=== PATIENT | male | born 1965 | race Caucasian/White ===

== ENCOUNTER 2018-11-27 11:57 | Day surgery (SDC) | payer OTHER ==
[~2018-11-27] VITALS: Ht 160 cm; Wt 67.8 kg
[2018-11-27 13:18] VITALS: Ht 160 cm; Wt 67.8 kg
[2018-11-27 13:41] VITALS: BP 134/77; PULSE 63; RESP 16
[2018-11-27] MEDS ORDERED: NO HOME MEDS (13:42)
--- NOTE | 2018-11-27 14:18 | PREAC ---
Date/Time of Note Date/Time of Note DATE: 11/27/18 TIME: 14:16 Anesthesia Eval and Record Evaluation Time Pre-Procedure Interview DATE: 11/27/18 TIME: 14:16 Age 53 Sex male NPO: 8 hrs Preoperative diagnosis SCREENING COLON CANCER Planned procedure COLONOSCOPY POSSIBLE BIOPSY Past Medical History Past Medical History: None Surgery & Anesthesia Issues No known issue (LEFT INGUINAL HERNIA SURGERY ) Meds Anticoagulation: No Beta Uma within 24 hr: No Reason Beta Uma not given: Pt. not on B-Uma Reported Medications [No Home Meds] No Conflict Check 11/27/18 Meds reviewed: Yes Allergies Coded Allergies: No Known Allergy (Verified , 11/27/18) Allergies Reviewed: Yes Labs/Studies Labs Reviewed: Reviewed by anesthesiologist (N/A) test: N/A Pre-procedure Exam Last vitals Vital Signs Date Temp Pulse Resp B/P (MAP) Pulse Ox O2 O2 Flow FiO2 Time Delivery Rate 11/27/18 97.0 63 16 134/77 98 Room Air 13:41 (96) Airway: Adequate mouth opening, Adequate thyromental dist Mallampati: Mallampati II Teeth: Normal Lung: Normal Heart: Normal ASA Physical Status ASA physical status: 1 Emergency: None Planned Anesthetic General/MAC: MAC Planned Pain Management Parenteral pain med Pre-operative Attestations Prior to commencing anesthesia and surgery, the patient was re-evaluated, there was verification of: *The patient's identity *The results of appropriate recent lab work and preoperative vital signs *The above evaluation not changing prior to induction *Anesthetic plan, risk benefits, alternative and complications discussed with patient/family; questions answered; patient/family understands, accepts and wishes to proceed. NENO VELARDE Nov 27, 2018 14:18
[2018-11-27] MEDS ORDERED: PROPOFOL 40 ML ONE (14:23)
[2018-11-27] MEDS ORDERED: LIDOCAINE 2% (SDV) 5 ML INJ ONE (14:23)
[2018-11-27] MEDS ORDERED: ONDANSETRON 4 MG INJ IV PRN (14:30)
[2018-11-27] MEDS ORDERED: EPHEDrine 25 MG/5 ML SYG ONE (15:20)
[2018-11-27 15:26] VITALS: BP 143/82; PULSE 105; RESP 18
--- NOTE | 2018-11-27 15:27 | PAC ---
Date/Time of Note Date/Time of Note DATE: 11/27/18 TIME: 15:26 Post-Anesthesia Notes Post-Anesthesia Note Last documented vital signs Vital Signs Date Temp Pulse Resp B/P (MAP) Pulse Ox O2 O2 Flow FiO2 Time Delivery Rate 11/27/18 97.0 63 16 134/77 98 Room Air 13:41 (96) Activity: WNL Respiratory function: WNL Cardiovascular function: WNL Mental status: Baseline Pain reasonably controlled: Yes Hydration appropriate: Yes Nausea/Vomiting absent: Yes Comments BP: 136/77 HR: 60 RR: 15 T: 98 SaO2: 99% CARA KRAUSE MD Nov 27, 2018 15:27
[2018-11-27 15:36] VITALS: BP 146/77; RESP 18
--- NOTE | 2018-11-27 17:01 | HPN ---
Date/Time of Note Date/Time of Note DATE: 11/27/18 TIME: 17:01 Interval H&P Admission Note Pt. seen H&P reviewed: No system changes FILOMENA ROBERTSON Nov 27, 2018 17:01
== END 2018-11-27 16:23 | disposition home or self-care (01) ==
LOC: GIL 11:57
PROVIDERS: ATTEND Internal Medicine Gastroenterology
DX: Z12.11 Encounter for screening for malignant neoplasm of colon (principal); K64.8 Other hemorrhoids
CPT/HCPCS: 45378; Z7610